=== PATIENT | male | born 1960 | race Caucasian/White ===

== ENCOUNTER 2023-05-27 05:08 | Inpatient (IN) ==
--- NOTE | 2023-04-26 13:58 | PAT Medication Instructions ---
Medication Instructions Date of Service April 26, 2023 Home Medications allopurinol 300 mg tablet 300 mg PO QAM amlodipine 10 mg tablet 10 mg PO QAM apple cider vinegar 2 cap PO HS cyanocobalamin (vitamin B-12) 1,000 mcg tablet (Vitamin B-12) 1,000 mcg PO HS garlic 400 mg tablet 400 mg PO HS ibuprofen 800 mg tablet 800 mg PO TID PRN Pain lisinopril 20 mg tablet 20 mg PO QAM metoprolol succinate 50 mg tablet,extended release 24 hr 50 mg PO QAM mv-min-vit C-ascorb Ko-Lxs-Hls-herb #124 334 mg-1.7 mg chewable tablet (Airborne (ascorbate sodium)) 1 tab PO HS omega-3 fatty acids 1 cap PO HS ASK your surgeon for instructions ibuprofen 800 mg tablet 800 mg PO TID PRN Pain STOP taking 2 weeks before surgery apple cider vinegar 2 cap PO HS garlic 400 mg tablet 400 mg PO HS mv-min-vit C-ascorb Bu-Dua-Mdl-herb #124 334 mg-1.7 mg chewable tablet (Airborne (ascorbate sodium)) 1 tab PO HS omega-3 fatty acids 1 cap PO HS DO NOT take the morning of surgery lisinopril 20 mg tablet 20 mg PO QAM Take morning of surgery With a small sip of water, OTHERWISE NOTHING TO EAT OR DRINK AFTER MIDNIGHT: allopurinol 300 mg tablet 300 mg PO QAM amlodipine 10 mg tablet 10 mg PO QAM metoprolol succinate 50 mg tablet,extended release 24 hr 50 mg PO QAM Take evening before surgery cyanocobalamin (vitamin B-12) 1,000 mcg tablet (Vitamin B-12) 1,000 mcg PO HS Other Notes If you have any questions please call us at [phone] or [phone] or [phone] or [phone]
--- NOTE | 2023-04-28 09:51 | Anesthesiology Consultation ---
Date of Service April 28, 2023 Assessment & Plan (1) Encounter for pre-operative examination: Chart Review Chart Review: Pending: Refer to Additional Notes / Consult section (pending cardio clearance, PCP clearance and 04/28/23 ER note ) and Patient seen in Pre Admission Testing - Awaiting PCP clearance 04/30/23 (Josué Carrillo PA-C) - New onset a fib- sent to ER - patient set up with [facility] - scheduled to see 04/30/23 - Awaiting 04/28/23 ER (in draft) - Discussed with Dr. Richmond- patient is NOT an OPJ candidate- surgeon's office and patient informed. Per PAT appt on 04/28/23, no recent illness/disease exposures, illness related symptoms, or recent illness/disease positive tests. Will leave to surgeon's discretion if preop Covid testing needed Teaching & Discussion Pre-Anesthesia Teaching/Discussion Notes: Instructed NPO after midnight before surgery,except medications with 15 cc of water. Medication instructions provided according to the PAT guidelines. History Surgery Operation Date: 05/27/23 11:35 Proposed Procedures p Left Shoulder Anatomic Total Shoulder Arthroplasty - Sravan Olvera M.D. Height/Weight Height: 6 ft 3 in Weight: 111.5 kg Allergies Allergy/AdvReac Type Severity Reaction Status Date / Time No Known Allergies Allergy Verified 04/20/23 07:30 Medications Home Medications Medication Instructions Recorded Confirmed Last Taken allopurinol 300 mg tablet 300 mg PO QAM 04/20/23 04/20/23 Unknown amlodipine 10 mg tablet 10 mg PO QAM 04/20/23 04/20/23 Unknown apple cider vinegar 2 cap PO HS 04/20/23 04/20/23 Unknown cyanocobalamin (vitamin B-12) 1,000 mcg PO HS 04/20/23 04/20/23 Unknown 1,000 mcg tablet (Vitamin B-12) garlic 400 mg tablet 400 mg PO HS 04/20/23 04/20/23 Unknown ibuprofen 800 mg tablet 800 mg PO TID PRN Pain 04/20/23 04/20/23 Unknown lisinopril 20 mg tablet 20 mg PO QAM 04/20/23 04/20/23 Unknown metoprolol succinate 50 mg 50 mg PO QAM 04/20/23 04/20/23 Unknown tablet,extended release 24 hr mv-min-vit C-ascorb 1 tab PO HS 04/20/23 04/20/23 Unknown Me-Ark-Qbg-herb #124 334 mg-1.7 mg chewable tablet (Airborne (ascorbate sodium)) omega-3 fatty acids 1 cap PO HS 04/20/23 04/20/23 Unknown Past Medical History Medical History Atrial fibrillation New onset discovered at PAT appt 04/28/23 Gout No recent issues History of skin cancer removed from your head, neck, shoulder, face, arms Hypercholesteremia Hypertension Osteoarthritis Exercise / Class Metabolic Activity II 4-5 Yardwork/Stairs/Walk up hill (one flight of stairs - no chest pain or SOB ) Past Surgical History Surgical History History of surgery Skin cancer excision to right shoulder in hospital Hx of left cataract extraction Hx of local excision of skin lesion skin cancer removed from arm Past Anesthesia History No Hx of Anesthesia Complications (no hx of GA ) and No Family Hx of Anesthesia Complications History of PONV No Hx of PONV and No Hx of Motion Sickness Social History Smoking Status: Never smoker Do You Dip or Chew Tobacco: No Hx Alcohol Use: Yes Alcohol type: beer alcohol intake frequency: 3 or more drinks per day (4-5 beers/day (more on the weekends)- usually in the evening ) Hx Substance Use: No substance use type: does not use Review of Systems - Gets "trapped air" occ - improved with belching -feels related to reflux- takes apple cider vinegar - Hx of snoring - unsure of witnessed apnea - no hx of sleep study Patient denies chest pain, shortness of breath, dyspnea on exertion, cough, wheezing, palpitations. No hx of seizures, stroke, HI. No hx of blood clots or blood transfusions Physical Exam Vital Signs VITALS BP 142/90 P 52 TEMP 98.0 SP02 96% RESP 16 Constitutional no acute distress ENMT Mouth: no TMJ clicking Thyromental Distance: > or= 3.5 Finger Breadths (4.0) Mallampati Class: I Mouth / Teeth: 1. Missing Missing molars and see above Neck neck extension not limited Respiratory normal respiratory effort; no respiratory distress Auscultation: lungs clear to auscultation bilaterally; no wheezes Cardiovascular Rate/Rhythm: regular rate and regular rhythm Heart Sounds: no murmur Vessels: no carotid bruit Occ extra beat Musculoskeletal Spine: no pain with cervical ROM Extremities: extremities normal to inspection Psychiatric Orientation: alert Lab Results Anesthesia Preop Results Results Anesthesia Widget: WBC 6.59 K/ul (4.8-10.8) 04/28/23 Hgb 14.6 g/dl (14.0-18.0) 04/28/23 Hct 40.1 % (42.0-52.0) L 04/28/23 Plt 262 K/uL (130-400) 04/28/23 Na 138 mmol/L (136-145) 04/28/23 K 3.4 mmol/L (3.5-5.1) L 04/28/23 Cl 111 mmol/L (98-107) H 04/28/23 CO2 21 mmol/L (21-32) 04/28/23 BUN 19 mg/dl (6-23) 04/28/23 Creat 0.96 mg/dl (0.6-1.4) 04/28/23 Glucose Level 101 mg/dl (70-99(Fasting)) H 04/28/23 PT 11.3 Seconds (9.0-12.0) 04/28/23 PTT 28.5 Seconds (21.0-31.0) 04/28/23 INR 1.0 (0.9-1.1) 04/28/23 HA1c 5.6 % (4.5-5.6) 04/28/23 Urine Color Yellow 04/28/23 Urine Appearance Clear (Clear) 04/28/23 Urine pH 6.0 (4.5-7.5) 04/28/23 Urine Specific [place] 1.021 (1.000-1.030) 04/28/23 Urine Protein Negative (Negative) 04/28/23 Urine Glucose (UA) Negative (Negative) 04/28/23 Urine Ketones Negative (Negative) 04/28/23 Urine Blood Negative (Negative) 04/28/23 Urine Nitrite Negative (Negative) 04/28/23 Urine Bilirubin Negative (Negative) 04/28/23 Urine Urobilinogen Negative (Negative) 04/28/23 Urine Leukocyte Esterase Negative (Negative) 04/28/23 Blood Type AB Positive 04/28/23 Antibody Screen NEGATIVE 04/28/23 Testing Electrocardiogram Date: 04/28/23 Atrial fibrillation with 2.2 second pause Chest X-Ray Date: 04/28/23 Findings: + NAD and + cardiomegaly (mild)
--- NOTE | 2023-05-26 12:34 | History & Physical Report ---
Date of Service May 26, 2023 Assessment & Plan (1) Primary osteoarthritis, left shoulder: Plan: He has severe left glenohumeral joint arthritis. This does appear to be primary glenohumeral joint arthritis by x-ray, exam, and MRI. He has good rotator cuff strength on exam, and rotator cuff looks largely intact on MRI. We discussed further conservative management with repeat glenohumeral joint steroid injection versus definitive surgical intervention with total shoulder arthroplasty. We did discuss that he is relatively young for shoulder replacement, and he has a higher chance of wearing this out with time and requiring a revision total shoulder arthroplasty in his lifetime; this carries a much higher complication rate. He and his voiced understanding of this. He would like to proceed with total shoulder arthroplasty. I do think it is reasonable option. His rotator cuff is largely intact, I think he would be a good candidate for an anatomic total shoulder arthroplasty. He has no history of osteoporosis or recent fractures, and we can therefore likely do a stemless implant, although this would be an intraoperative decision. We will plan to do this as an outpatient procedure. Risks, benefits, and alternatives of surgery were expla ined in detail. The surgical procedure, as well as postoperative recovery and rehabilitation, was also explained in detail. Risks include bleeding; infection; damage to surrounding structures such as nerves, blood vessels, and tendons that run in the area; persistent pain or stiffness; hardware failure; dislocation; brachial plexus palsy; blood clots; or need for further surgery. The patient understands all of this and wishes to proceed with surgery. Risks will be reviewed on the day of surgery and informed consent obtained. History of Present Illness Chief Complaint: Left shoulder pain Primary Care Provider: Josué Carrillo Mr. Roberts returns. Again, he is a 63-year-old arbqv-cnhl-hvrbxcho male with chronic left shoulder pain for least the past 5 to 6 years encourage progressive worsening. This is significantly limiting his activities of daily living and waking him up at night. He had a previous glenohumeral joint steroid injection in October 2022 without any significant improvement in his pain. Of note, he is fairly healthy. He denies history of coronary artery disease, myocardial infarction, or pulmonary issues. He was recently diagnosed with AFib and started on Xarelto 20mg daily. He has no personal family history of o steoporosis. No recent fractures. Allergies Allergy/AdvReac Type Severity Reaction Status Date / Time No Known Allergies Allergy Verified 04/30/23 09:48 Home Medications Medication Instructions Recorded Confirmed Type allopurinol 300 mg tablet 300 mg PO QAM 04/20/23 04/30/23 History amlodipine 10 mg tablet 10 mg PO QAM 04/20/23 04/30/23 History apple cider vinegar 2 cap PO HS 04/20/23 04/30/23 History cyanocobalamin (vitamin B-12) 1,000 mcg PO HS 04/20/23 04/30/23 History 1,000 mcg tablet (Vitamin B-12) garlic 400 mg tablet 400 mg PO HS 04/20/23 04/30/23 History lisinopril 20 mg tablet 20 mg PO QAM 04/20/23 04/30/23 History metoprolol succinate 50 mg 50 mg PO QAM 04/20/23 04/30/23 History tablet,extended release 24 hr mv-min-vit C-ascorb 1 tab PO HS 04/20/23 04/30/23 History Sn-Ouy-Ywd-herb #124 334 mg-1.7 mg chewable tablet (Airborne (ascorbate sodium)) omega-3 fatty acids 1 cap PO HS 04/20/23 04/30/23 History ibuprofen 800 mg tablet 800 mg PO DAILY Pain 04/30/23 04/30/23 History rivaroxaban 20 mg tablet (Xarelto) 20 mg PO DAILY #30 tabs 04/30/23 04/30/23 Rx Past Med/Surg History Medical History Atrial fibrillation New onset discovered at [facility] appt 04/28/23 Gout No recent issues History of skin cancer removed from your head, neck, shoulder, face, arms Hypercholesteremia Hypertension Osteoarthritis Surgical History History of surgery Skin cancer excision to right shoulder in hospital Hx of left cataract extraction Hx of local excision of skin lesion skin cancer removed from arm Social History Smoking Status: Never smoker Second Hand Exposure: Yes (hx-social environments); Do You Dip or Chew Tobacco: No; Tobacco Cessation Education Requested by Patient: No Hx Alcohol Use: Yes Alcohol type: beer Hx Substance Use: No Preferred Language: Khmer Communication Ability: Effective Inclined Railway Operator Required: No Beliefs That Will Affect Care: None Current Living Situation: Spouse Other Information That Helps Us Care for You: No Feels Safe at Home: Yes Safety Concerns: Feels Safe At This Time Assistive Devices: Glasses Assistive Devices Comment: reading glasses prn Physical Exam Physical Exam: Examination of the left shoulder shows fairly severe limitation in shoulder range of motion due to pain, with palpable crepitus during motion. Rotator cuff strength is well maintained. Results & Data Diagnostic Findings Previous x-rays of the left shoulder from September and October 2022 were reviewed. They show severe glenohumeral joint arthritis with large osteophyte formation and complete joint space collapse. There is superior displacement of the clavicle with a lot of heterotopic bone in the coracoclavicular interval, consistent with previous AC joint separation with coracoclavicular ligament rupture. MRI of the left shoulder from February 2023 was independently interpreted by me. It shows some partial-thickness rotator cuff tearing at the junction of the supraspinatus and infraspinatus tendons. No full-thickness rotator cuff tears, tendon retraction, or atrophy of the rotator cuff muscle bellies. There is an os acromiale with significant hypertrophy at the pseudoarthrosis contributing to a type III acromion with mass effect on the underlying supraspinatus. Also again noted is chronic changes related to previous AC separation.
[2023-05-27] MEDS ORDERED: LR 15ML/HR IV SCH (06:00)
[2023-05-27] MEDS ORDERED: TRANEXAMIC ACID 1,000 MG **IV Pre-op IV SCH (06:00)
[2023-05-27] MEDS ORDERED: FAMOTIDINE 20 MG TAB PO SCH (06:00)
[2023-05-27] MEDS ORDERED: LR 60ML/HR IV SCH (06:00)
[2023-05-27] MEDS ORDERED: METOCLOPRAMIDE HCL 10 MG TABLET PO SCH (06:00)
[2023-05-27] MEDS ORDERED: CeleBREX 200 MG CAP PO SCH (06:00)
[2023-05-27] MEDS ORDERED: ACETAMINOPHEN 500 MG TAB PO SCH (06:00)
[2023-05-27] MEDS ORDERED: GABAPENTIN 600 MG DOSE PO SCH (06:00)
[2023-05-27] MEDS ORDERED: ceFAZolin 2000MG 2,000 MG/15 ML SYR IV SCH (06:00)
[2023-05-27] MEDS ORDERED: oxyCODONE HCL 10 MG TABCR (OxyCONTIN) PO SCH (06:00)
[2023-05-27] MEDS ORDERED: ROCURONIUM BROMIDE 10 MG/ML 5 ML VIAL IV ONE (06:20)
[2023-05-27] MEDS ORDERED: PROPOFOL IV EMULSION 10 MG/ML 20 ML VIAL IV ONE (06:20)
[2023-05-27] MEDS ORDERED: MIDAZOLAM HCL 1 MG/ML 2ML VIAL ONE (06:20)
[2023-05-27] MEDS ORDERED: fentaNYL citrate PF 100 MCG/2 ML VIAL ONE (06:20)
[2023-05-27] MEDS ORDERED: LIDOCAINE 2% 2 ML VIAL/AMP(20MG/ML) INFIL ONE (06:20)
[2023-05-27] MEDS ORDERED: ONDANSETRON INJ 2 MG/ML 2 ML VIAL ONE (06:20)
[2023-05-27] MEDS ORDERED: DEXAMETHASONE SOD INJ 4 MG/ML VIAL ONE (06:20)
[2023-05-27] MEDS ORDERED: BUPIVACAINE 0.5 % 5 MG/1 ML PF 10ML VIAL ONE (06:22)
[2023-05-27] MEDS ORDERED: ePHEDrine sulfate 50 MG/ML AMP IV PRN (06:41)
[2023-05-27] MEDS ORDERED: fentaNYL citrate PF 100 MCG/2 ML VIAL IV PRN (06:41)
[2023-05-27] MEDS ORDERED: ATROPINE SULFATE 0.1 MG/ML 10ML SYR IV PRN (06:41)
[2023-05-27] MEDS ORDERED: ONDANSETRON INJ 2 MG/ML 2 ML VIAL IV PRN ×2 (06:41→11:00)
--- NOTE | 2023-05-27 06:57 | History & Physical Bridge Note ---
Date of Service May 27, 2023 History & Physical Bridge Note I have examined the patient, reviewed the History & Physical and in the interval since the performance of the History & Physical I have noted the following changes of clinical significance: no changes noted
[2023-05-27] MEDS ORDERED: SUGAMMADEX SODIUM 200 MG/2 ML VIAL IV ONE (09:28)
--- NOTE | 2023-05-27 09:37 | Operative Report ---
Post Operative Report Pre & Post Diagnosis Operation Date: 05/27/23 07:00 Pre-Op Diagnosis: Left shoulder primary glenohumeral joint arthritis Post-Op Diagnosis: Left shoulder primary glenohumeral joint arthritis I identified the patient and participated in the time-out.: Yes Procedure Operation Date: 05/27/23 07:00 Actual Procedures Left anatomic stemless total shoulder arthroplasty (79322) Open biceps tenodesis (80060) - Sravan Olvera M.D. Surgeon Sravan Olvera MD Pipe Fitter Helper Shay Conklin PA-C Estimated Blood Loss 75 Findings Consistent with Post-Op Diagnosis Specimens None Drains None Anesthesia Type General Regional Complications none Disposition Disposition: Recovery Room Indications Mr. Roberts is a 63-year-old male with chronic left shoulder pain. History, clinical exam, and imaging were consistent with the above diagnosis. Risks, benefits, and alternatives of surgery were explained in detail. The patient understood all this and wished to proceed. Description of Procedure Components Implanted: Tornier Anatomic Total Shoulder implants Perform+ Pegged Cortiloc polyethylene glenoid: Large, 40 radius, 15 degree posterior augment Simpliciti stemless Nucleus: 3 Humeral head: 52 x 23mm Patient was identified in the preoperative holding area. Operative extremity was marked. Regional blockade was given by the Anesthesia Staff. Patient was then brought back to the operating room, and general anesthesia was induced without complication. Appropriate weight-based dose of Ancef was infused intrav enously for antibiotic prophylaxis. The patient was then placed in the beachchair position. Left arm was then prepped and draped in a standard sterile fashion using Chlorhexidine prep. A standard deltopectoral incision was made through the skin and subcutaneous tissue. The cephalic vein was identified and retracted medially. Small branches to the deltoid were coagulated as necessary. The clavipectoral fascia was then incised and the subdeltoid space was opened. The rotator cuff was found to be intact, and I therefore decided to perform an anatomic total shoulder arthroplasty as planned preoperatively. The biceps tendon was identified within the bicipital groove and tenodesed at the superior border of the pectoralis tendon with #2 FiberWire suture. The biceps tendon was then divided proximal to the tenodesis site and the rotator interval was opened. The proximal portion of the biceps tendon was excised. Lesser tuberosity osteotomy was then performed to detach the subscapularis off of the proximal humerus; this was tagged with a #0 Vicryl suture. The glenohumeral joint was then dislocated, and large osteophytes were debrided with a ronguer. The humeral head cut was then made in the appropriate inclination and version. The cancellous bone within the proximal humerus was found to be of good quality, and I felt that it would support a stemless humeral implant. The Simpliciti guideplate was then placed over the humeral cut, and the central guidewire was inserted and advanced through the lateral humeral cortex. The corresponding reamer was then used to ensure the humeral cut surface was flat, and then the central drill hole was made over the guidewire. The broach for the nucleus was then impacted, and a protective cap was then placed over the nuclear broach. I then turned my attention to the glenoid. The proximal stump of the biceps tendon was excised, along with the labrum circumferentially around the glenoid. The Blueprint drill guide was then positioned on the glenoid, and the guidepin was then inserted. The rotation hole for the angled giselle-glenoid reamer was also drilled. The paleo-reamer was then inserted over the guidepin and the anterior half of the glenoid reamed to an appropriate depth. The angled giselle-reamer was then inserted over the guidewire and into the rotation hole, and the posterior half of the glenoid reamed to an appropriate depth. The central peg drill hole was made over the guidewire. The drill guide for the peripheral glenoid pegs was then placed onto the glenoid surface, and 3 peripheral drill holes made within the glenoid in an appropriate orientation. Morselized cancellous bone was packed into the fins of the Cortiloc central peg, and bone cement was placed into the 3 peripheral glenoid peg holes. The glenoid component was then implanted into place, and excess cement removed. A trial humeral head was inserted, and a trial reduction was carried out. Once I achieved acceptable joint stability and range of motion with the trial implants, the trials were removed and the final humeral implants impacted into position. Prior to final impaction of the humeral component, I inserted two #2 FiberWire sutures for subsequent repair of the lesser tuberosity osteotomy. I then took the shoulder through full range of motion to ensure good stability and acceptable motion. Wound was then copiously irrigated with sterile saline. The lesser tuberosity and its attached subscapularis were then repaired to the lesser tuberosity with the previously placed #2 FiberWire sutures. The rotator interval was then closed with the shoulder held in external rotation with #2 FiberWire suture. Deep fascia was closed with 0 V-lock suture. Subcutaneous tissue was closed with 2-0 V-lock, and skin was closed with 3-0 V-lock. Skin was then sealed with Dermabond. Sterile dressings were then applied with a waterproof silver- impregnated dressing, and the arm was placed into a sling. The patient was awakened from anesthesia and taken to the Post Anesthesia Care Unit in stable condition. There were no immediate complications from the procedure. I was present and scrubbed for the entire procedure, with the exception of final skin closure and dressing application. Due to the complex nature of the procedure, the entire surgery was performed with the operational assistance of Shay Conklin PA-C. The certified ophthalmic surgical assistant, under direct supervision, was involved in the performance of all aspects of the surgical procedure including hemostasis, tissue incision and retraction, instrument management, patient positioning, and wound closure. I attest to the content of the Intraoperative Record and any orders documented therein. Any exceptions are noted below.
--- NOTE | 2023-05-27 10:53 | XRay Report ---
XR shoulder LT min 2V routine CLINICAL HISTORY: Post shoulder surgery TECHNIQUE: 3 views of the left shoulder were obtained. Comparison: Comparison is made to chest radiograph 04/28/2023 FINDINGS: Patient is status post shoulder arthroplasty with expected postsurgical changes including soft tissue swelling and subcutaneous emphysema. No periarticular lucency or hardware fracture is seen. IMPRESSION: Degenerative changes without evidence of acute abnormality. ACT 112: Negative or not required by law. Electronically signed by: Chris Reinoso M.D. 05/27/2023 10:52 AM
[2023-05-27] MEDS ORDERED: METOCLOPRAMIDE HCL INJ 5 MG/ML 2 ML VIAL IV PRN (11:00)
[2023-05-27] MEDS ORDERED: SODIUM CHLORIDE 0.9% 1,000 ML IV SCH (11:00)
[2023-05-27] MEDS ORDERED: NALOXONE HCL 0.4 MG/1 ML VIAL/CARP IV PRN (11:00)
[2023-05-27] MEDS ORDERED: MAGNESIUM HYDROXIDE SUSP 30 ML UDC PO PRN (11:00)
[2023-05-27] MEDS ORDERED: oxyCODONE HCL IR 5 MG TAB (IMMEDIATE RELEASE) PO PRN (11:00)
[2023-05-27] MEDS ORDERED: bisacodyL 10 MG SUPP PR PRN (11:00)
--- NOTE | 2023-05-27 11:44 | Anesthesiology Progress Note ---
Date of Service May 27, 2023 Anesthesia Post Procedure Vital Signs Vital Signs: Temp Pulse Pulse Resp BP Pulse Ox O2 Del Method 05/27/23 11:26 97.7 F 85 17 127/78 94 Nasal Cannula 05/27/23 10:50 97.7 F 74 18 127/89 96 Nasal Cannula 05/27/23 10:40 74 15 126/81 93 Nasal Cannula 05/27/23 10:30 74 15 129/87 92 Nasal Cannula 05/27/23 10:20 97.5 F L 72 18 131/86 93 Nasal Cannula 05/27/23 10:10 70 15 126/74 96 Oxymask 05/27/23 10:00 62 12 129/60 92 Oxymask 05/27/23 09:51 97.3 F L 67 12 98/61 L 91 Oxymask 05/27/23 05:33 98.2 F 79 18 152/87 H 96 Room Air O2 Flow Rate 05/27/23 11:26 2 05/27/23 10:50 2 05/27/23 10:40 4 05/27/23 10:30 4 05/27/23 10:20 4 05/27/23 10:10 15 05/27/23 10:00 15 05/27/23 09:51 15 05/27/23 05:33 Transfer of Care Handoff Completed per policy Notes Mental Status: alert / awake / arousable and participated in evaluation Patient Amnestic to Procedure: Yes Nausea / Vomiting: adequately controlled Pain: adequately controlled Airway Patency, RR, SpO2: stable & adequate BP & HR: stable & adequate Hydration State: stable & adequate Anesthetic Complications: no major complications apparent and Pt Satisfied with anesthetic care
[2023-05-27] MEDS: ACETAMINOPHEN 500 MG TAB PO SCH ×3 (11:46→23:29)
[2023-05-27] MEDS: IBUPROFEN 600 MG TAB PO SCH ×3 (11:46→22:18)
[2023-05-27] MEDS: ceFAZolin 2000MG 2,000 MG/15 ML SYR IV SCH ×2 (17:04→23:30)
[2023-05-27 19:19] VITALS: RESP 18
[2023-05-27] MEDS ORDERED: SENNA 8.6 MG TAB PO SCH (21:00)
[2023-05-27] MEDS ORDERED: CYANOCOBALAMIN (B-12) 500 MCG TABLET PO SCH (21:00)
[2023-05-27] MEDS: DOCUSATE SODIUM 100 MG CAP PO SCH (22:18)
[2023-05-28 02:57] VITALS: PULSE 73
[2023-05-28] MEDS: IBUPROFEN 600 MG TAB PO SCH (05:32)
[2023-05-28] MEDS: ACETAMINOPHEN 500 MG TAB PO SCH (05:32)
[2023-05-28 07:14] VITALS: BP 129/78; TEMP 99.1; O2SAT 96
[2023-05-28] MEDS: DOCUSATE SODIUM 100 MG CAP PO SCH (07:27)
--- NOTE | 2023-05-28 08:15 | Orthopedic Progress Note ---
Date of Service May 28, 2023 Assessment & Plan (1) Status post replacement of right shoulder joint: Plan: 63 yo male stable POD #1 s/p right shoulder anatomic TSA 1. Med management 2. DVT prophylaxis- resume Xareldenise, SCDs 3. PT/OT 4. D/C planning- home w/ OPPT Admission and Anticipated Discharge Date Admission Date: May 27, 2023 Subjective Pt resting in bed, denies complaints, pain controlled Physical Exam Physical Exam: Silverlon dressing in place, shoulder immobilizer in place, fingers mobile, NVI Results & Data Vital Signs (Past 12 Hours) Vital Signs Temp Pulse Resp BP Pulse Ox O2 Del Method 05/28/23 07:13 37.3 C 73 18 129/78 96 Room Air 05/28/23 02:56 37 C 73 18 126/79 95 Room Air 05/27/23 23:00 36.7 C 77 18 114/70 93 Room Air
[2023-05-28 08:34] LABS: Basophils # (auto) 0.02 K/uL (0.00-0.20); Basophils % (auto) 0.2 %; Eosinophils # (auto) 0.05 K/uL (0.00-0.50); Eosinophils % (auto) 0.4 %; Hematocrit (blood only) 39.1 % (42.0-52.0); Hemoglobin 13.5 g/dl (14.0-18.0); Immature Granulocytes # (auto) 0.03 K/uL (0.01-0.20); Immature Granulocytes % (auto) 0.3 %; Lymphocytes # (auto) 1.07 K/uL (1.20-3.40); Lymphocytes % (auto) 9.4 %; Mean Corpuscular Hemoglobin 35.6 pg (25.0-34.0); Mean Corpuscular Hgb Conc 34.5 g/dL (32.0-36.0); Mean Corpuscular Volume 103.2 fL (80.0-100.0); Mean Platelet Volume 9.2 fL (9.4-12.4); Monocytes # (auto) 0.94 K/uL (0.11-0.59); Monocytes % (auto) 8.2 %; Neutrophils # (auto) 9.31 K/uL (1.40-6.50); Neutrophils % (auto) 81.5 %; Platelet Count 244 K/uL (130-400); RDW Coefficient of Variation 12.6 % (11.5-14.5); Red Blood Count 3.79 M/uL (4.70-6.10); White Blood Count 11.42 K/ul (4.8-10.8)
[2023-05-28 08:49] LABS: BUN Creatinine Ratio 13.8 (10-20); Calcium 9.8 mg/dl (8.6-10.3); Creatinine Clr Calc Pharmacy 89.4 ml/min; Est GFR (African American) 77.8 ml/min; Est GFR (Non-African American) 67.1 ml/min; Potassium 3.6 mmol/L (3.5-5.1)
[2023-05-28] MEDS ORDERED: RIVAROXABAN 20 MG TAB PO SCH (09:00)
[2023-05-28] MEDS ORDERED: METOPROLOL SUCC 50MG EXT REL TAB PO SCH (09:00)
[2023-05-28] MEDS ORDERED: allopurinoL 300 MG TAB PO SCH (09:00)
[2023-05-28] MEDS ORDERED: amLODIPine BESYLATE 5 MG TAB PO SCH (09:00)
[2023-05-28] MEDS ORDERED: MULTIVITAMIN TAB PO SCH (09:00)
[2023-05-28] MEDS ORDERED: lisinopril 20 MG TAB PO SCH (09:00)
--- NOTE | 2023-05-28 14:09 | Discharge Summary ---
Date of Service May 28, 2023 Admission HPI Per Admitting Provider Mr. Roberts returns. Again, he is a 63-year-old [id number] male with chronic left shoulder pain for least the past 5 to 6 years encourage progressive worsening. This is significantly limiting his activities of daily living and waking him up at night. He had a previous glenohumeral joint steroid injection in October 2022 without any significant improvement in his pain. Of note, he is fairly healthy. He denies history of coronary artery disease, myocardial infarction, or pulmonary issues. He was recently diagnosed with AFib and started on Xarelto 20mg daily. He has no personal family history of o steoporosis. No recent fractures. Principal Diagnosis Left shoulder osteoarthritis Discharge Data Allergies Allergy/AdvReac Type Severity Reaction Status Date / Time No Known Allergies Allergy Verified 05/27/23 05:37 Procedures Performed Operation Date: 05/27/23 07:00 Actual Procedures p Left Anatomic Total Shoulder Arthroplasty(Left) - Sravan Olvera M.D. Ordered Studies 05/27/23 05:00 US - OR guided needle placemen Routine Hospital Course (1) Primary osteoarthritis, left shoulder: Patient underwent a left anatomic total shoulder arthroplasty on the date of admission. Patient tolerated the procedure well and was transferred up to the general orthopedic surgery floor in stable condition. Perioperative antibiotic coverage was initiated, and continued for 24 hours postoperatively. DVT prophylaxis was initiated consisting of SCDs and restarting his home Xarelto 20 mg daily. Perioperative pain control regimen was transitioned to strictly oral pain medications by postoperative day 1. On postoperative day 1 the patient was doing very well. Pain was well controlled, and patient was mobilizing well with therapy. Patient was determined be safe and ready for discharge to home. Total Time Total Time Spent Total Time Spent (In Minutes): 15 Discharge Plan Discharge Items Patient Disposition: Home - Self-Care Reason For Visit: Left Shoulder Arthritis Discharge Diagnosis: Left shoulder primary glenohumeral joint arthritis Activity: Per Instructions section Non-emergency contact: Surgeon Call non-emergency contact if: your pain is not controlled, your temperature is above 101.5, your wound has increased redness and your wound has increased drainage Follow-up/Referrals: Josué Carrillo [Primary Care Provider] - (Patient will schedule own appt.) Sravan Olvera M.D. [Physician] - Diet: Heart Healthy Addtl Attending Provider Instructions: Things to Watch Out For -Go to the Emergency Room if you have sudden onset of nausea, vomiting, chest pain, shortness of breath, or uncontrollable pain. -Call the clinic or go to the Emergency Room if you have a sudden increase in the amount of wound drainage or the drainage becomes thick, yellow or green, or foul-smelling. -For routine questions, call the clinic at [phone] during regular business hours (8am-5pm). For urgent issues after regular business hours, you may call the clinic to be connected to the on-call physician. Dressings -A special waterproof, silver-impregnated dressing was placed on your shoulder. Keep this dressing in place for 1 week after surgery. You may shower with the waterproof dressing in place, but do not soak the dressing in the bathtub or pool. -One week after surgery, you may remove the waterproof dressing. You may continu e to shower, and let water run BRIEFLY over the incision, but do not soak the incision in the bathtub or pool for 2 weeks. You may also gently clean the incision with mild soap and water; pat the incision dry after cleaning-do not rub the incision. Apply a new dressing daily thereafter. Shoulder Exercises -Keep your operative shoulder in the sling for comfort, except as detailed below. -You should come out of the sling 4-5 times a day for passive pendulum exercises: lean over and swing your arm in a circular pattern. -You should also do active-assisted forward flexion exercises: use your opposite hand to lift your operative arm forward to 90 degrees. -Do not flex your elbow (curl motion) or supinate your forearm (rotating palm up) against resistance. -Do not use your arm to push yourself up out of bed or up from a seated position. -Subscapularis repair: Do not externally rotate your arm past neutral rotation (forearm pointed straight out from your body) or internally rotate your arm ( pull your forearm towards your body) against resistance. Do not abduct your shoulder past 90 degrees (bring your arm out to the side past shoulder level). Ice Pack -You may use an ice pack for pain relief. You should use it 20-30 minutes at a time. Place a towel between the ice pack and your skin to prevent frostbite. -You should use the ice pack fairly regularly for the first 1-2 weeks after jose miguel joel to help reduce pain and inflammation. -About 2 weeks after your surgery, you should start using heat to loosen up your shoulder prior to doing your stretching exercises, then use the cooling sleeve after your exercises are complete to reduce swelling and pain. Pain Medicines -Your prescriptions for pain medications have already been sent to the pharmacy on file at [facility]. -You have been prescribed an anti-inflammatory (Motrin/ibuprofen) and a non- narcotic pain medicine (Tylenol/acetaminophen). These are your primary pain medications. Take them each every 6 hours as instructed. It is recommended that you stagger these medicines every 3 hours (i.e. take ibuprofen at 8:00 am, then acetaminophen at 11:00 am, then ibuprofen at 2:00 pm, etc) -DO NOT take any additional anti-inflammatories (Advil, Aleve/naproxen, Mobic/meloxicam, Celebrex) or any additional Tylenol/acetaminophen products with these prescribed medications. -You have also been prescribed an additional narcotic pain medication (oxycodone). Take this medicine ONLY for breakthrough pain not controlled by the ibuprofen and acetaminophen. -Do not drive or operate heavy machinery while taking the narcotic medication. -Common side effects of narcotic pain medicines include itching, nausea, constipation, and feeling "loopy". However, if you develop a rash or hives, stop taking the medicine and call the clinic. If you develop swelling in your throat or difficulty breathing, go to the Emergency Room or call 911 IMMEDIATELY. -You may take over the counter stool softeners if needed for constipation. Pending Studies at Discharge: No Stand-Alone Forms: My [facility] Medications and DC Order Prescriptions: Continued Xarelto 20 mg tablet 20 mg PO DAILY Qty: 30 2RF Rx Instructions: must administer with meal metoprolol succinate 50 mg Tablet Extended Release 24 Hr 50 mg PO QAM lisinopril 20 mg Tablet 20 mg PO QAM cyanocobalamin (vitamin B-12) [Vitamin B-12] 1,000 mcg Tablet 1,000 mcg PO HS amlodipine 10 mg Tablet 10 mg PO QAM allopurinol 300 mg Tablet 300 mg PO QAM garlic 400 mg Tablet 400 mg PO HS omega-3 fatty acids Capsule 1 cap PO HS Airborne (ascorbate sodium) 334-1.7 mg Tablet,Chewable 1 tab PO HS apple cider vinegar 2 cap PO HS Discontinued ibuprofen 800 mg tablet 800 mg PO DAILY Patient Comments: usually takes once daily Discharge Orders: Discharge Order (Routine); Ordered 05/28/23 Ordered By: Shay Interiano/Other Patient Handouts: Rivaroxaban Oral Tablet, AFib Admission Data Admit Date/Time: 05/27/23 09:54 Attending Provider: Sravan Olvera Admit Provider: Sravan Olvera Primary Care Provider: Josué Carrillo Other Interventions: Discharge Summary Assessment (RN) Last Done: 05/28/23 09:00
== END 2023-05-28 09:57 | disposition home or self-care (01) | DRG 483 ==
LOC: ASU 05:08 → 3E 09:54 → MERGE 11:35
DX: M75.102 Unspecified rotator cuff tear or rupture of left shoulder, not specified as traumatic; M19.012 Primary osteoarthritis, left shoulder; F10.10 Alcohol abuse, uncomplicated; I48.91 Unspecified atrial fibrillation; Z79.01 Long term (current) use of anticoagulants; I10 Essential (primary) hypertension; Z79.899 Other long term (current) drug therapy; M10.9 Gout, unspecified